=== PATIENT | male | born 1975 | race Caucasian/White ===

== ENCOUNTER 2017-12-01 14:46 | Emergency (ER) | payer OTHER ==
[~2017-12-01] VITALS: Ht 185.4 cm; Wt 152.0 kg
[2017-12-01] MEDS ORDERED: AVAPRO150 MG (15:05)
== END 2017-12-02 18:48 | disposition home or self-care (01) ==
LOC: ER 14:46 → CPU-OBS 15:09 → ER 12-02 18:48
DX: I47.1 Supraventricular tachycardia (principal)
CPT/HCPCS: G0378; G0379; 93005; 93306

== ENCOUNTER 2019-10-25 16:31 | Inpatient (IN) | payer OTHER ==
[~2019-10-25] VITALS: Ht 185.4 cm; Wt 142.9 kg
[~2019-10-25 16:31] MED LIST: AVAPRO150 MG
[2019-10-28] MEDS ORDERED: OPTIMAL D31250 MCG (08:23)
[2019-10-28] MEDS ORDERED: IRBESARTAN75 MG PO (08:23)
[2019-10-28] MEDS ORDERED: DILTIAZEM 24HR240 MG PO (08:23)
== END 2019-10-28 16:20 | disposition home or self-care (01) | DRG 310 ==
LOC: ER 16:31 → SURH 10-27 12:30 → SEC-K 10-27 12:30 → SURH 10-27 15:54 → SEC-K 10-27 16:20 → SURH 10-27 16:21
PROVIDERS: ADMIT Internal Medicine Cardiovascular Disease; ATTEND Internal Medicine Cardiovascular Disease
PROC: B24BZZZ Ultrasonography of Heart with Aorta (ICD-10-PCS; principal; 2019-10-27)
PROC: 4A12X4Z Monitoring of Cardiac Electrical Activity, External Approach (ICD-10-PCS; 2019-10-27)
DX: I48.20 Chronic atrial fibrillation, unspecified (principal); I47.1 Supraventricular tachycardia; I10 Essential (primary) hypertension; I08.2 Rheumatic disorders of both aortic and tricuspid valves; Z79.01 Long term (current) use of anticoagulants; Z03.818 Encounter for observation for suspected exposure to other biological agents ruled out